=== PATIENT | female | born 1965 | race Caucasian/White ===

== ENCOUNTER → 2017-09-30 | Outpatient (CLI) | payer OTHER ==
[~2017-09-30] MED LIST: FLONASE 50 MCG16 GM; INDOCIN25 MG PO; MEDROL 4MG. DOSE4 MG PO; NOMEDS XX; ZITHROMAX Z PA250 MG PO
--- NOTE | 2017-10-07 15:05 | RADIOLOGY REPORT PS360 ---
DIG MAMM-SCREEN TEDDY W/CAD CAD Screening COMPARISON: Digital mammograms 04/07/2016 and 10/25/2014 INDICATION: There is no personal or family history of breast cancer TECHNIQUE: Standard CC and MLO images were obtained. R2 CAD reviewed. FINDINGS: Moderate diffuse scattered fibroglandular densities are seen throughout both breasts. There is no suspicious lesion in either breast and there are no suspicious microcalcifications.. IMPRESSION: Fibrofatty parenchyma with no suspicious lesion seen recommend yearly follow-up BI-RADS CATEGORY: 1_Negative RECOMMENDED FOLLOWUP: 12M 12 MONTH FOLLOW-UP (A letter has been sent to the patient regarding results of the study.)
== END ==
LOC: RAD 17:00
DX: Z12.31 Encounter for screening mammogram for malignant neoplasm of breast (principal)
CPT/HCPCS: G0202